=== PATIENT | male | born 1965 | race Two or more races ===

== ENCOUNTER 2021-12-27 16:12 | Emergency (ER) | payer OTHER ==
[~2021-12-27] VITALS: Ht 157.5 cm; Wt 83.9 kg
[2021-12-27] MEDS ORDERED: LIDOCAINE 1% HCL (LOCAL ANESTH.) INJ 20ML MDV IJ ONE (17:00)
[2021-12-27] MEDS ORDERED: CEPH-509 PO (21:32)
[2021-12-27 22:07] VITALS: BP 136/91
== END 2021-12-27 22:09 | disposition home or self-care (01) ==
LOC: ER 16:13
DX: S62.632A Displaced fracture of distal phalanx of right middle finger, initial encounter for closed fracture (principal); S61.312A Laceration without foreign body of right middle finger with damage to nail, initial encounter; Z88.0 Allergy status to penicillin; W23.0XXA Caught, crushed, jammed, or pinched between moving objects, initial encounter; Y93.9 Activity, unspecified; Y92.89 Other specified places as the place of occurrence of the external cause; Y99.8 Other external cause status
CPT/HCPCS: 12002; 26770; 73130; 99285; J2001; 12042